=== PATIENT | male | born 1975 | race Caucasian/White ===

== ENCOUNTER 2019-11-11 21:09 | Emergency (ER) | payer SELFPAY ==
[~2019-11-11] VITALS: Ht 167.6 cm; Wt 75.7 kg
--- NOTE | 2019-11-11 21:09 | NUR ---
PT BIB PD, PREBOOK. TAKEN TO CHAIR
[2019-11-11 21:16] VITALS: BP 126/56
--- NOTE | 2019-11-11 21:19 | NUR ---
Patient discharged with v/s stable. Written and verbal after care instructions given and explained. Patient verbalized understanding. Ambulatory with steady gait. All questions addressed prior to discharge. Advised to follow up with PMD. PT DISCHARGED AND EVALUATED BY DR. VALLE. NO NURSING INTERVENTIONS DONE.
[2019-11-11 21:20] VITALS: BP 126/56
== END 2019-11-11 21:19 ==
LOC: MED 21:09
DX: S00.81XA Abrasion of other part of head, initial encounter (principal); Z02.89 Encounter for other administrative examinations; Y04.0XXA Assault by unarmed brawl or fight, initial encounter; Y93.89 Activity, other specified; Y92.89 Other specified places as the place of occurrence of the external cause; Y99.8 Other external cause status
CPT/HCPCS: 99283